=== PATIENT | male | born 1985 | race Hispanic/Latino ===

== ENCOUNTER 2018-07-08 21:39 | Emergency (ER) | payer OTHER ==
[2018-07-08 21:54] VITALS: BP 105/62; PULSE 72; RESP 18; TEMP 98; O2SAT 99
--- NOTE | 2018-07-08 22:17 | ED PDOC ---
Upper Extremity Pain/Injury Time Seen by Provider: 07/08/18 22:15 Chief Complaint (Nursing): Upper Extremity Problem/Injury Chief Complaint (Provider): left elbow pain History Per: Patient Additional Complaint(s): 32-year-old right-hand dominant male presents with pain to left elbow that started earlier today. Patient states a few days ago he sustained an abrasion to left elbow and today noticed increased redness and swelling. He denies trauma or injury, denies fever or chills. No medication taken for pain relief prior to arrival. PMD: none Past Medical History Reviewed: Historical Data, Nursing Documentation, Vital Signs Vital Signs: Last Vital Signs Temp 98 F 07/08/18 21:50 Pulse 72 07/08/18 21:50 Resp 18 07/08/18 21:50 BP 105/62 07/08/18 21:50 Pulse Ox 99 07/08/18 21:50 - Medical History PMH: No Chronic Diseases - Surgical History Surgical History: No Surg Hx - Family History Family History: States: No Known Family Hx - Living Arrangements Living Arrangements: With Friends/Others - Social History Current smoker - smoking cessation education provided: No Alcohol: None Drugs: Denies - Home Medications Home Medications: Ambulatory Orders Medication Instructions Recorded Clindamycin [Cleocin] 300 mg PO QID #28 cap 07/08/18 Ibuprofen [Motrin Tab] 800 mg PO Q8 PRN #20 tab 07/08/18 - Allergies Allergies/Adverse Reactions: Allergies Allergy/AdvReac Type Severity Reaction Status Date / Time almond Allergy ITCHING Verified 07/08/18 21:50 Review of Systems ROS Statement: Except As Marked, All Systems Reviewed And Found Negative Constitutional: Negative for: Fever Musculoskeletal: Positive for: Other (left elbow pain) Physical Exam - Reviewed Nursing Documentation Reviewed: Yes Vital Signs Reviewed: Yes - Physical Exam Appears: Positive for: Well, Non-toxic, No Acute Distress Skin: Positive for: Normal Color. 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 Advised ice, rest and elevation to affected area. Advised wound reevaluation in 2-3 days. Ortho referral provided. Patient declined offered sling. Disposition - Clinical Impression Clinical Impression: Cellulitis of left elbow, Olecranon bursitis of left elbow - Patient ED Disposition Is Patient to be Admitted: No Counseled Patient/Family Regarding: Diagnosis, Need For Followup, Rx Given - Disposition Referrals: Manuel Black MD [Staff Provider] - Disposition: Routine/Home Disposition Time: 22:19 Condition: STABLE Additional Instructions: Apply ice and elevate affected area. Rest left arm as much as possible. Take prescription meds as directed. Follow-up with orthopedist or return to ED at any time if acutely worse. Prescriptions: Clindamycin [Cleocin] 300 mg PO QID #28 cap Ibuprofen [Motrin Tab] 800 mg PO Q8 PRN #20 tab PRN Reason: Pain, Moderate (4-7) Instructions: Olecranon Bursitis (DC), Olecranon Bursitis Exercises, Cellulitis (Skin Infection), Adult (DC)
== END 2018-07-08 23:12 | disposition home or self-care (01) ==
LOC: H.ER 21:39
DX: L03.114 Cellulitis of left upper limb (principal)